=== PATIENT | female | born 1995 | race Caucasian/White ===

== ENCOUNTER 2019-04-17 17:14 | Emergency (ER) | payer OTHER, SELFPAY ==
[2019-04-17 17:22] VITALS: BP 146/75; PULSE 102; RESP 16; TEMP 36.9; O2SAT 100; BMI 23.6
[2019-04-17 17:36] LABS: Add Manual Diff / Slide Review NO; Basophils Absolute Auto 0 /uL (0-100); Basophils Percent Auto 0.5 % (0-2); Eosinophils Absolute Auto 100 /uL (0-450); Hematocrit 39.6 % (36-46); Lymphocytes Absolute Auto 2000 /uL (1100-4500); Lymphocytes Percent Auto 20.4 % (25-40); Mean Corpuscular HGB Conc 32.8 % (30-36); Mean Corpuscular Hemoglobin 27.1 PG (26-34); Mean Corpuscular Volume 82.6 fL (80-100); Monocytes Absolute Auto 800 /uL (0-900); Monocytes Percent Auto 8.5 % (3-14); Neutrophils Absolute Auto 6800 /uL (1500-7000); Neutrophils Percent Auto 69.6 % (50-75); Platelet Count 271 X10^3/uL (150-400); Red Cell Distribution Width 13.6 % (11.6-14.8); White Blood Cell Count 9.7 X10^3/uL (4.5-11.0)
--- NOTE | 2019-04-17 17:39 | PC.NURSE ---
Patient reports she had about 1 tbsp of dark red vaginal blood this morning at 11Am. About 1 more tbs an hour or two later. She steas has had no bleeding for the last 2 hours however is having lower abdominal cramping.
--- NOTE | 2019-04-17 17:42 | DI.US.S_ITS ---
PROCEDURE: US OB <= 14 WEEKS FETUS INDICATIONS: 7 WEEKS , BLEEDING OUTSIDE/PRIOR DATING DATA: Last menstrual period (LMP): 02/28/19. LMP-based estimated date of delivery (SHARON): 12/05/19. First dating scan (date and location): Current study, 04/17/19. Estimated date of delivery (SHARON) from first dating scan: Not applicable. TECHNIQUE: Real-time scanning was performed of the fetus and maternal pelvic organs, with image documentation. Endovaginal scanning was also performed to better visualize the fetus and maternal ovaries. COMPARISON: None. FINDINGS: Embryo: None seen. Within an ovoid endometrial fluid collection, there is a thin membrane and no evidence of pole. There is no significant decidual response. Mean gestational sac diameter is 7.7 mm which corresponds to a 5 week 4 day plus or -12 a gestation. Maternal organs: There is a small amount of simple fluid in the endocervix. A collection of microcysts is present the endocervix. An ovoid endometrial fluid collection is present, as are numerous small cysts peripherally located within the endometrium. The ovoid fluid collection within the uterine mid body rather than close to the fundus. Ovaries are seen and appear normal with detectable blood flow. Trace amount of fluid in the cul-de-sac. IMPRESSION: 1. Abnormal position and appearance of an ovoid intrauterine fluid collection. Findings are suggestive of nonviable . 2. Close clinical followup with serial beta hCG levels is recommended. 3. A cystic appearance to the endometrium raises the possibility of adenomyosis. Consider followup pelvic ultrasound in a non- state. Dictated by: Dorcas Miller M.D. on 04/17/2019 at 19:50 Approved by: Dorcas Miller M.D. on 04/17/2019 at 19:57
[2019-04-17 17:58] LABS: Alanine Aminotransferase 17 IU/L (9-52); Albumin Globulin Ratio 1.6 (1.0-2.8); Alkaline Phosphatase 55 U/L (38-126); Aspartate Aminotransferase 24 IU/L (14-36); Bilirubin Total 0.5 mg/dL (0.2-1.3); Blood Urea Nitrogen 15 mg/dL (7-17); Calcium 10.1 mg/dL (8.4-10.2); Carbon Dioxide 27 mmol/L (22-32); Chloride 101 mmol/L (98-107); Estimated Glomerular Filt Rate > 60.0 mL/min (>60); Globulin 3.1 g/dL (1.7-4.1); Glucose 91 mg/dL (70-100); HEMOLYSIS < 15 (0-50); Potassium 3.3 mmol/L (3.4-5.1); Sodium 138 mmol/L (137-145); Total Protein 8.1 g/dL (6.3-8.2)
[2019-04-17 18:15] LABS: HCG Quantitative /Beta subunit 574.67 mIU/mL
[2019-04-17 18:30] VITALS: BP 110/61; PULSE 99; RESP 18; O2SAT 100
--- NOTE | 2019-04-17 19:55 | ED_ITS ---
HPI - Female Genitourinary <TAMEKA Marie - Last Filed: 04/17/19 20:46> General Chief complaint: OB/Uterine Contractions Stated complaint: 7 WKS , BLEEDING, CRAMPING Time Seen by Provider: 04/17/19 17:25 Source: patient Mode of arrival: Ambulatory Limitations: no limitations History of Present Illness HPI Narrative: The patient is a 23-year-old female nonsmoker presents with her for chief complaint of vaginal bleeding . She states she is approximately 7 weeks , has her 1st OB appointment next week. She states that she started spotting this morning, states is about a tbsp of blood. Does not feel of a pad. Since then she has noticed some blood on the toilet paper when she urinates. She states it is not 2 hours ago. She denies any dysuria urgency or frequency. She complains of some suprapubic cramping. She denies any fevers nausea vomiting or diarrhea. Related Data Home Medications Medication Instructions Recorded Confirmed PNV cmb#95-ferrous fumarate-FA 1 tab PO DAILY 04/17/19 [] Allergies Allergy/AdvReac Type Severity Reaction Status Date / Time No Known Drug Allergies Allergy Verified 04/17/19 17:22 Review of Systems <TAMEKA Marie - Last Filed: 04/17/19 20:46> Review of Systems Narrative: GENERAL: Denies chills, fatigue, malaise, fever, sweats. HEENT: Denies sinus pain, ear pain, sore throat, difficulty swallowing, dizziness. RESPIRATORY: Denies dyspnea, cough, wheezing, hemoptysis, sputum. CARDIOVASCULAR: Denies chest pain, palpitations, orthopnea, edema, GASTROINTESTINAL: See HPI : See HPI MUSCULOSKELETAL: denies weakness, joint pain, or bony pain SKIN: Denies rash, skin lesions, or other NEUROLOGIC: Denies weakness, headache, numbness, change in speech, confusion, seizures, incoordination. PSYCHIATRIC: No concerning psychosocial issues. 12 point review of systems is negative except for those stated above PFSH <TAMEKA Marie - Last Filed: 04/17/19 20:46> Social History (Updated 04/17/19 @ 19:56 by TAMEKA Marie) marital status: Exam <CYNTHIA MarieBC - Last Filed: 04/17/19 20:46> Narrative Exam Narrative: GENERAL: This is a well-nourished, well-developed patient, no acute distress HEAD: Atraumatic. Normocephalic. No temporal or scalp tenderness. EYES: Pupils equal round and reactive. Extraocular motions intact. No scleral icterus. No injection or drainage. ENT: Nose without bleeding, purulent drainage or septal hematoma. Throat without erythema, tonsillar hypertrophy or exudate. Uvula midline. Airway patent. NECK: Trachea midline. No JVD or lymphadenopathy. Supple, nontender, no meningeal signs. CARDIOVASCULAR: Regular rate and rhythm without murmurs, gallops, or rubs. RESPIRATORY: Clear to auscultation. Breath sounds equal bilaterally. No wheezes, rales, or rhonchi. No cough. No increased respiratory effort. No accessory muscle use. GASTROINTESTINAL: Abdomen soft, non-tender, nondistended. No hepato- splenomegaly, or palpable masses. No guarding. Active bowel sounds all 4 quadrants. EXTREMITIES: No clubbing, cyanosis, or edema. No joint tenderness, effusion, or edema noted. BACK: Nontender without deformity or crepitance. No flank tenderness. NEURO: AOx3. SKIN: No rash or erythema. Initial Vital Signs Initial Vital Signs: Vital Signs Temperature 98.4 F 04/17/19 17:22 Pulse Rate 102 H 04/17/19 17:22 Respiratory Rate 16 04/17/19 17:22 Blood Pressure 146/75 H 04/17/19 17:22 Pulse Oximetry 100 04/17/19 17:22 <Luis Alberto Parks MD - Last Filed: 04/18/19 02:08> Initial Vital Signs Initial Vital Signs: Vital Signs Temperature 98.4 F 04/17/19 17:22 Pulse Rate 102 H 04/17/19 17:22 Respiratory Rate 16 04/17/19 17:22 Blood Pressure 146/75 H 04/17/19 17:22 Pulse Oximetry 100 04/17/19 17:22 Course <OSVALDO Marie-BC - Last Filed: 04/17/19 20:46> Orders Ordered: ED Orders 04/17/19 17:25 ABO RH Type Stat Complete Blood Count AUTO DIFF Stat Comprehensive Metabolic Panel Stat HCG Quantitative Stat 04/17/19 17:42 US OB <= 14 weeks fetus Stat Vital Signs Vital signs: Vital Signs - 8 hr 04/17/19 18:30 04/17/19 20:42 Pulse Rate 99 H 95 H Respiratory Rate 18 Blood Pressure 131/69 Blood Pressure [Left Arm] 110/61 Pulse Oximetry 100 100 <Luis Alberto Parks MD - Last Filed: 04/18/19 02:08> Orders Ordered: ED Orders 04/17/19 17:25 ABO RH Type Stat Complete Blood Count AUTO DIFF Stat Comprehensive Metabolic Panel Stat HCG Quantitative Stat 04/17/19 17:42 US OB <= 14 weeks fetus Stat Vital Signs Vital signs: Vital Signs - 8 hr 04/17/19 18:30 04/17/19 20:42 Pulse Rate 99 H 95 H Respiratory Rate 18 Blood Pressure 131/69 Blood Pressure [Left Arm] 110/61 Pulse Oximetry 100 100 MDM - Female Genitourinary <OSVALDO Marie- - Last Filed: 04/17/19 20:46> Lab Data Result diagrams: 04/17/19 17:25 04/17/19 17:25 Labs: Lab Results 04/17/19 04/17/19 04/17/19 Range/Units 17:25 17:25 17:25 WBC 9.7 (4.5-11.0) X10^3/uL RBC 4.80 (4.0-5.2) X10^6/uL Hgb 13.0 (12.0-16.0) g/dL Hct 39.6 (36-46) % MCV 82.6 (80-100) fL MCH 27.1 (26-34) PG MCHC 32.8 (30-36) % RDW 13.6 (11.6-14.8) % Plt Count 271 (150-400) X10^3/uL Neut % (Auto) 69.6 (50-75) % Lymph % (Auto) 20.4 L (25-40) % [place] % (Auto) 8.5 (3-14) % Eos % (Auto) 1.0 L (2-4) % Baso % (Auto) 0.5 (0-2) % Neut # (Auto) 6800 (7637-3457) /uL Lymph # (Auto) 2000 (0439-1198) /uL [place] # (Auto) 800 (0-900) /uL Eos # (Auto) 100 (0-450) /uL Baso # (Auto) 0 (0-100) /uL Sodium 138 (137-145) mmol/L Potassium 3.3 L (3.4-5.1) mmol/L Chloride 101 (98-107) mmol/L Carbon Dioxide 27 (22-32) mmol/L BUN 15 (7-17) mg/dL Creatinine 0.60 (0.52-1.04) mg/dL Estimated GFR > 60.0 (>60) mL/min BUN/Creatinine Ratio 25.0 H (6-22) Glucose 91 (70-100) mg/dL Calcium 10.1 (8.4-10.2) mg/dL Total Bilirubin 0.5 (0.2-1.3) mg/dL AST 24 (14-36) IU/L ALT 17 (9-52) IU/L Alkaline Phosphatase 55 (38-126) U/L Total Protein 8.1 (6.3-8.2) g/dL Albumin 5.0 (3.5-5.0) g/dL Globulin 3.1 (1.7-4.1) g/dL Albumin/Globulin Ratio 1.6 (1.0-2.8) HCG, Quant 574.67 mIU/mL Blood Type O Positive Urine Dip Bedside Urine Glucose Negative Bedside Urine Bilirubin - Negative Bedside Urine Ketone +/- 5 Urine Specific Thurmond 1.025 Bedside Urine Occult Blood + Bedside Urine pH 6.0 Bedside Urine Protein + 30 Bedside Urine Urobilinogen - Negative Bedside Urine Nitrite - Negative Bedside Urine Leukocytes - Negative Esterase Imaging Data ultrasound: Radiologist's impression: [place] [address] Ultrasound Report Signed Patient: VERO JONES MMR#: [id number] : 1995Acct:[id number] Age/Sex: te of Service: 04/17/19 Loc: ED Accession Number: [id number] Procedure: US OB <= 14 weeks fetus Ordering Provider: Stephenie Cardozo PROCEDURE: US OB <= 14 WEEKS FETUS INDICATIONS: 7 WEEKS , BLEEDING OUTSIDE/PRIOR DATING DATA: Last menstrual period (LMP): 02/28/19. LMP-based estimated date of delivery (SHARON): 12/05/19. First dating scan (date and location): Current study, 04/17/19. Estimated date of delivery (SHARON) from first dating scan: Not applicable. TECHNIQUE: Real-time scanning was performed of the fetus and maternal pelvic organs, with image documentation. Endovaginal scanning was also performed to better visualize the fetus and maternal ovaries. COMPARISON: None. FINDINGS: Embryo: None seen. Within an ovoid endometrial fluid collection, there is a thin membrane and no evidence of pole. There is no significant decidual response. Mean gestational sac diameter is 7.7 mm which corresponds to a 5 week 4 day plus or - 12 a gestation. Maternal organs: There is a small amount of simple fluid in the endocervix. A collection of microcysts is present the endocervix. An ovoid endometrial fluid collection is present, as are numerous small cysts peripherally located within the endometrium. The ovoid fluid collection within the uterine mid body rather than close to the fundus. Ovaries are seen and appear normal with detectable blood flow. Trace amount of fluid in the cul-de-sac. IMPRESSION: 1. Abnormal position and appearance of an ovoid intrauterine fluid collection. Findings are suggestive of nonviable . 2. Close clinical followup with serial beta hCG levels is recommended. 3. A cystic appearance to the endometrium raises the possibility of adenomyosis. Consider followup pelvic ultrasound in a non- state. Dictated by: Dorcas Miller M.D. on 04/17/2019 at 19:50 Approved by: Dorcas Miller M.D. on 04/17/2019 at 19:57 MDM Narrative Medical decision making narrative: The patient is a 23-year-old female presents with a chief complaint of vaginal bleeding at 7 weeks . She has no signs of urinary tract infection. She does have a slightly elevated beta HCG in the 500s, though this is lower than I would anticipate for her to station age. An ultrasound was obtained, which raise concern of a blighted ovum, or non viable . I discussed at length the necessity of following up with OBGYN for serial HCGs. Discussed coming back to the ER for any acute concerns such as inability keep down fluids, severe bleeding etc. I did give the patient several days off of work to help facilitate her care. Patient was discharged . Patient states understanding of follow-up care, return precautions and has no questions or concerns upon discharge. <Luis Alberto Parks MD - Last Filed: 04/18/19 02:08> Lab Data Labs: Lab Results 04/17/19 04/17/19 04/17/19 Range/Units 17:25 17:25 17:25 WBC 9.7 (4.5-11.0) X10^3/uL RBC 4.80 (4.0-5.2) X10^6/uL Hgb 13.0 (12.0-16.0) g/dL Hct 39.6 (36-46) % MCV 82.6 (80-100) fL MCH 27.1 (26-34) PG MCHC 32.8 (30-36) % RDW 13.6 (11.6-14.8) % Plt Count 271 (150-400) X10^3/uL Neut % (Auto) 69.6 (50-75) % Lymph % (Auto) 20.4 L (25-40) % [place] % (Auto) 8.5 (3-14) % Eos % (Auto) 1.0 L (2-4) % Baso % (Auto) 0.5 (0-2) % Neut # (Auto) 6800 (0910-9782) /uL Lymph # (Auto) 2000 (5944-1457) /uL Marinette # (Auto) 800 (0-900) /uL Eos # (Auto) 100 (0-450) /uL Baso # (Auto) 0 (0-100) /uL Sodium 138 (137-145) mmol/L Potassium 3.3 L (3.4-5.1) mmol/L Chloride 101 (98-107) mmol/L Carbon Dioxide 27 (22-32) mmol/L BUN 15 (7-17) mg/dL Creatinine 0.60 (0.52-1.04) mg/dL Estimated GFR > 60.0 (>60) mL/min BUN/Creatinine Ratio 25.0 H (6-22) Glucose 91 (70-100) mg/dL Calcium 10.1 (8.4-10.2) mg/dL Total Bilirubin 0.5 (0.2-1.3) mg/dL AST 24 (14-36) IU/L ALT 17 (9-52) IU/L Alkaline Phosphatase 55 (38-126) U/L Total Protein 8.1 (6.3-8.2) g/dL Albumin 5.0 (3.5-5.0) g/dL Globulin 3.1 (1.7-4.1) g/dL Albumin/Globulin Ratio 1.6 (1.0-2.8) HCG, Quant 574.67 mIU/mL Blood Type O Positive Urine Dip Bedside Urine Glucose Negative Bedside Urine Bilirubin - Negative Bedside Urine Ketone +/- 5 Urine Specific Thurmond 1.025 Bedside Urine Occult Blood + Bedside Urine pH 6.0 Bedside Urine Protein + 30 Bedside Urine Urobilinogen - Negative Bedside Urine Nitrite - Negative Bedside Urine Leukocytes - Negative Esterase Discharge Plan Departure Patient Disposition: Home Clinical Impression: Miscarriage, threatened, early Discharge Date/Time: 04/17/19 20:43 Instructions: Dealing With Miscarriage, DI for Miscarriage, DI for Threatened Activity Restrictions/Additional Instructions: Please follow-up with a your OBGYN as soon as possible. As I discussed, your hormone is elevated but your ultrasound shows concern for a blighted ovum or lost . Monitoring your lab work is very important at this point. I have given you a few days off of work to help coordinate your care rest and push fluids. Please come back to the emergency department for any acute concerns such as severe bleeding, passing out etc Prescriptions: No Action PNV cmb#95-ferrous fumarate-FA [] 28 mg iron- 800 mcg tablet 1 tab PO DAILY RF: 0 Referrals: [facility] [Outside] Stand Alone Forms: School Release Note, Work Release Note
[2019-04-17 20:42] VITALS: BP 131/69; PULSE 95; O2SAT 100
== END 2019-04-17 20:43 | disposition home or self-care (01) ==
PROVIDERS: Emergency Provider Nurse Practitioner Family
DX: O20.0 Threatened abortion (principal); Z3A.01 Less than 8 weeks gestation of pregnancy
CPT/HCPCS: 36415; 76801; 80053; 81003; 84702; 85025; 86900; 86901; 99282; 99284

== ENCOUNTER → 2019-11-05 14:56 | Outpatient (CLI) | payer OTHER, SELFPAY ==
--- NOTE | 2019-11-05 14:58 | DI.US.S_ITS ---
PROCEDURE: US RENAL COMPLETE INDICATIONS: RIGHT FLANK PAIN, ? KIDNEY STONE TECHNIQUE: Real-time scanning was performed of the kidneys and bladder, with image documentation. COMPARISON: [facility], , US OB >= 14 WEEKS FETUS, 11/05/2019, 15:34. [facility], , US OB <= 14 WEEKS FETUS, 04/17/2019, 18:42. FINDINGS: Kidneys: Kidneys are normal in size. Right kidney measures 10.7 cm long; left kidney measures 11.3 cm long. Right renal cortical thickness is 1.4 cm; left renal cortical thickness is 1.5 cm. Renal cortical echotexture is normal. Mild bilateral hydronephrosis. No nephrolithiasis. No suspicious solid mass lesions. Bladder: Pre-void bladder volume is 270 mL. Post-void residual is 51 mL. Pre-void images demonstrate no intraluminal masses or stones. On pre-void images, both ureteral jets are noted with color Doppler interrogation. (Of note, ureteral jets may not be detectable in up to 25% of cases due to insufficient differences in specific gravity between ureteral and bladder urine). Miscellaneous: No free pelvic fluid. There is a single IUP with heart rate 136 bpm. IMPRESSION: 1. Mild bilateral hydronephrosis. 2. Single IUP with heart rate 136 bpm. Dictated by: Lynn French M.D. on 11/05/2019 at 16:55 Approved by: Lynn French M.D. on 11/05/2019 at 17:01
--- NOTE | 2019-11-05 14:58 | DI.US.S_ITS ---
PROCEDURE: US OB >= 14 WEEKS FETUS INDICATIONS: 20 WEEK ANATOMY OUTSIDE/PRIOR DATING DATA: Last menstrual period (LMP): 06/17/19. LMP-based estimated date of delivery (SHARON): 03/23/20. First dating scan (date and location): 11/05/19, [facility]. Estimated date of delivery (SHARON) from first dating scan: 03/22/20. TECHNIQUE: Real-time scanning was performed of the fetus, with image documentation and biometric measurements. COMPARISON: None from this FINDINGS: General: A single live intrauterine gestation is present. Presentation: Variable. Placenta: Placental position is anterior, without previa. Amniotic fluid index: 16.8 cm, normal range is 5-24 cm. heart rate: 143 beats per minute. Maternal cervical canal: 3.3 cm long. Normal lower limit is 2.5 cm. biometrics: Biparietal diameter: 4.8 cm equals 20 weeks 3 days Head circumference: 18.1 cm equals 20 weeks 3 days Abdominal circumference: 16.5 cm equals 21 weeks 2 days Femur length: 3.1 cm equals 19 weeks 5 days Estimated gestational age from initial scan: 20 weeks 2 days Composite gestational age from present scan: 20 weeks 2 days Estimated weight and percentile: 360 g, 68th percentile Measurement variability for biometric dating: +/- 7 days from 14 weeks to 15 weeks 6 days gestation, +/- 10 days from 16 weeks to 21 weeks 6 days gestation, +/- 2 weeks from 22 weeks to 27 weeks 6 days gestation, +/- 3 weeks for 28 weeks gestation or later. weight reference: 4500 g or EFW >90/95% is considered macrosomia or large for gestational age. EFW <10% is small for gestational age. EFW 5% or less is considered intra-uterine growth restriction. Anatomic survey: Neuro: Ventricles are non-dilated at less than 10 mm. Cisterna magna is normal at 3-11 mm. Cerebellum is normal in size and morphology. Nuchal skin fold: Normal at less than 6 mm between 14-21 weeks gestational age. Face: Nose and lips, facial profile are normal. Spine: No evidence for spina bifida. Heart: 4-chambered heart is present, with normal ventricular outflow tracts. Diaphragm: Diaphragm is intact. Stomach: Left-sided stomach is present. Kidneys: No hydronephrosis. Normal is less than 5 mm in 2nd trimester, less than 7 mm in 3rd trimester. Cord: 3-vessel cord has orthotopic insertion. Bladder: Normal in size. Extremities: All 4 extremities identified. IMPRESSION: A single live intrauterine is seen. No significant discrepancy is found between the estimated gestational age based on these images and the estimated gestational age based upon the given date of the last menstrual period. No anatomic abnormalities are identified. Dictated by: Subhash Ballesteros M.D. on 11/05/2019 at 16:17 Approved by: Subhash Ballesteros M.D. on 11/05/2019 at 16:18
[2019-11-11 08:22] LABS: CF Result Comment: (.)
== END ==
PROVIDERS: Referring Provider Family Medicine; Visit Provider Family Medicine
DX: Z36.89 Encounter for other specified antenatal screening (principal); O99.89 Other specified diseases and conditions complicating pregnancy, childbirth and the puerperium; N13.30 Unspecified hydronephrosis; R10.9 Unspecified abdominal pain; Z3A.20 20 weeks gestation of pregnancy; Z83.49 Family history of other endocrine, nutritional and metabolic diseases
CPT/HCPCS: 36415; 76770; 76811; 81223

== ENCOUNTER → 2019-12-31 11:21 | Outpatient (CLI) | payer OTHER, SELFPAY ==
[2019-12-31 13:43] LABS: Add Manual Diff / Slide Review NO; Basophils Absolute Auto 0 /uL (0-100); Basophils Percent Auto 0.3 % (0-2); Eosinophils Absolute Auto 100 /uL (0-450); Eosinophils Percent Auto 0.7 % (2-4); Hematocrit 31.1 % (36-46); Hemoglobin 10.7 g/dL (12.0-16.0); Lymphocytes Absolute Auto 1200 /uL (1100-4500); Lymphocytes Percent Auto 11.1 % (25-40); Mean Corpuscular HGB Conc 34.3 % (30-36); Mean Corpuscular Hemoglobin 29.3 PG (26-34); Mean Corpuscular Volume 85.4 fL (80-100); Monocytes Absolute Auto 800 /uL (0-900); Neutrophils Absolute Auto 8800 /uL (1500-7000); Neutrophils Percent Auto 80.9 % (50-75); Platelet Count 247 X10^3/uL (150-400); Red Blood Cell Count 3.64 X10^6/uL (4.0-5.2); Red Cell Distribution Width 13.9 % (11.6-14.8); White Blood Cell Count 10.9 X10^3/uL (4.5-11.0)
[2019-12-31 14:25] LABS: GTT (PREG) 1 Hour PP 50gm Dose 113 mg/dL (76-139)
== END ==
PROVIDERS: Referring Provider Family Medicine; Visit Provider Family Medicine
DX: Z34.92 Encounter for supervision of normal pregnancy, unspecified, second trimester (principal)
CPT/HCPCS: 36415; 82950; 85025

== ENCOUNTER 2020-01-24 18:32 | Outpatient (CLI) | payer OTHER, SELFPAY ==
--- NOTE | 2020-01-27 09:08 | P.TNLD_ITS ---
Visit Information Visit Information Date of evaluation: 01/24/20 Primary OB Provider: Kylie Castaneda On-call OB Provider: Zoe Soto Reason for Evaluation: Yes other Comments/Additional reasons for admission: Dizziness Vital Signs Vital Signs: Blood pressure 120/66, pulse of 83, temperature 97.4?, O2 sat 98% [facility] Medical History (Updated 01/27/20 @ 09:11 by Zoe Soto MD) Acid reflux (Acute) Anxiety (Acute) Jade infection of genital region (Acute) Migraine (Acute) UTI (urinary tract infection) (Acute) Surgical History (Updated 10/30/19 @ 14:59 by Katerina Francois RN) [place] teeth removed (Acute ~2019) Family History (Updated 10/30/19 @ 15:15 by Katerina Francois, BOUCHRA) Mother Scoliosis Father No problems noted. Grandmother No problems noted. Grandfather Cystic fibrosis gene carrier Grandmother No problems noted. Grandfather No problems noted. Family/Other Diabetes mellitus Social History (Updated 04/17/19 @ 19:56 by Stephenie Cardozo [facility]) marital status: household members: spouse pets and animals: Yes (X 2 cats and X 1 dog : and aware) education level: college (some college classes) occupational status: employed current occupational exposures/hazards: No Previous occupational history: [employer] special laurie needs: No Smoking Status: Never smoker second hand exposure: No alcohol intake: former (pre- : occasional) substance use type: does not use Review of Systems Review of Systems Narrative: Patient states that she was at work and felt extremely lightheaded and dizzy. She was told by her primary OB provider the next time this happened that she should be seen. Patient left work and came to Labor and delivery. However by the time she was evaluated her symptoms had resolved. Evaluation Evaluation Baseline heart rate: 140 Variability: Moderate (11-25) monitor accelerations: Present monitor decelerations: Absent Contraction Frequency (minutes): 0 Category of Tracing: I Diagnosis, Plan/Disposition Final Diagnosis (1) 31 weeks gestation of : Status: Acute (2) Dizziness of unknown etiology: Status: Acute Plan/Disposition Plan: Patient with dizziness of unknown etiology. Normal blood pressure and pulse as well as oxygenation. However most of her symptoms had resolved by the time she presented to the OB unit. She will keep her follow-up appointment with her primary OB provider OB Disposition: home
== END 2020-01-24 19:31 | disposition home or self-care (01) ==
LOC: OB 01-27 10:47
PROVIDERS: Referring Provider Specialist; Visit Provider Specialist
DX: O26.893 Other specified pregnancy related conditions, third trimester (principal); R42 Dizziness and giddiness; Z3A.31 31 weeks gestation of pregnancy
CPT/HCPCS: 59025; G0378; G0379

== ENCOUNTER → 2020-02-25 11:23 | Outpatient (CLI) | payer OTHER, SELFPAY ==
--- NOTE | 2020-02-26 08:01 | PM.OBTRLD ---
Visit Information Visit Information Date of evaluation: 02/25/20 Primary OB Provider: Kylie Castaneda On-call OB Provider: Nadine Banks Reason for Evaluation: Yes rupture of membranes Comments/Additional reasons for admission: Patient is a 24-year-old 1 para 0 at 36-,1/7 weeks gestation who presented to rule out ruptured membranes [facility] Medical History (Updated 01/29/20 @ 15:57 by Kylie Castaneda MD) Acid reflux (Acute) Anxiety (Acute) Jade infection of genital region (Acute) Migraine (Acute) UTI (urinary tract infection) (Acute) Surgical History (Updated 10/30/19 @ 14:59 by Katerina Francois, RN) [place] teeth removed (Acute ~2019) Family History (Updated 10/30/19 @ 15:15 by Katerina Francois, RN) Mother Scoliosis Father No problems noted. Grandmother No problems noted. Grandfather Cystic fibrosis gene carrier Grandmother No problems noted. Grandfather No problems noted. Family/Other Diabetes mellitus Social History (Updated 04/17/19 @ 19:56 by Stephenie Cardozo [facility]) marital status: household members: spouse pets and animals: Yes (X 2 cats and X 1 dog : and aware) education level: college (some college classes) occupational status: employed current occupational exposures/hazards: No Previous occupational history: [employer] special laurie needs: No Smoking Status: Never smoker second hand exposure: No alcohol intake: former (pre- : occasional) substance use type: does not use Evaluation Evaluation Baseline heart rate: 145 Variability: Moderate (11-25) monitor accelerations: Present monitor decelerations: Absent Contraction Frequency (minutes): 0 Uterine Contraction Intensity: Mild Category of Tracing: I Cervical dilation (cm): 0 Cervical effacement (%): 50 Non-invasive Membranes Rupture Test: negative Diagnosis, Plan/Disposition Plan/Disposition Plan: Assessment: 24-year-old 1 para 0 at 36-,1/7 weeks gestation without rupture of membranes Plan: Follow-up as scheduled with Dr. Castaneda Signs symptoms of labor/rupture of membranes reviewed OB Disposition: home
[2020-02-26 12:13] LABS: Strep Grp B PCR NEG for Grp B Strep
== END ==
LOC: LAB 11:54 → LABOR 19:05 → LAB 02-27 11:10
PROVIDERS: PCP Family Medicine; Referring Provider Family Medicine; Visit Provider Family Medicine
DX: Z34.03 Encounter for supervision of normal first pregnancy, third trimester (principal)
CPT/HCPCS: 59025; 84112; 87653; G0378

== ENCOUNTER 2020-03-21 02:33 | Inpatient (IN) | payer OTHER, SELFPAY ==
[2020-03-21 03:41] VITALS: BP 129/72
[2020-03-21] MEDS: LACTATED RINGERS 1,000 ML 100 ML IV ×2 (04:45→06:35)
[2020-03-21 04:48] LABS: Add Manual Diff / Slide Review NO; Basophils Absolute Auto 100 /uL (0-100); Basophils Percent Auto 0.9 % (0-2); Eosinophils Absolute Auto 100 /uL (0-450); Hematocrit 35.5 % (36-46); Hemoglobin 11.7 g/dL (12.0-16.0); Lymphocytes Absolute Auto 2000 /uL (1100-4500); Lymphocytes Percent Auto 13.2 % (25-40); Mean Corpuscular HGB Conc 32.9 % (30-36); Mean Corpuscular Hemoglobin 28.2 PG (26-34); Mean Corpuscular Volume 85.8 fL (80-100); Monocytes Absolute Auto 1200 /uL (0-900); Monocytes Percent Auto 8.1 % (3-14); Neutrophils Absolute Auto 11500 /uL (1500-7000); Neutrophils Percent Auto 76.8 % (50-75); Platelet Count 220 X10^3/uL (150-400); Red Blood Cell Count 4.14 X10^6/uL (4.0-5.2); Red Cell Distribution Width 13.1 % (11.6-14.8)
[2020-03-21 05:01] LABS: COVID19 -Nasal RAPID Negative (Negative)
--- NOTE | 2020-03-21 06:53 | P.HPOB_ITS ---
OB HPI Date/Time Date of admission: 03/21/20 Date Patient Seen: 03/21/20 Time Patient Seen: 06:00 History of Present Condition Chief complaint: evaluation of labor : 1 Para: 0 Estimated Date of Delivery: 03/23/20 Estimated Gestational Age (weeks): 39w5d Narrative: Kaykay Schafer is a 24 year old at 39w5d who presented with regular painful contractions. Preadmission Labs Blood type: O (+) positive -: Antibody screen: negative, Cystic fibrosis screen: positive (partner negative screen), GBS status: negative, HBsAG: negative, HIV: negative and RPR/VDLR: negative -: Chlamydia screen: not detected and Gonorrhea screen: not detected -: Rubella: immune and Varicella: immune HCT: 35.5 PAP: Normal Integrated screen: Negative Urine: Negative 1 hr GTT: 113 Evaluation Evaluation Baseline heart rate: 120 Variability: Moderate (11-25) monitor accelerations: Present monitor decelerations: Absent Contraction Frequency (minutes): 5 Uterine Contraction Intensity: Strong/Firm Category of Tracing: Reactive Cervical dilation (cm): 4 Cervical effacement (%): 90 station: +1 Laboratory results: Laboratory Tests 03/21/20 03/21/20 03/21/20 04:05 04:35 04:35 WBC 15.0 H RBC 4.14 Hgb 11.7 L Hct 35.5 L MCV 85.8 MCH 28.2 MCHC 32.9 RDW 13.1 Plt Count 220 Neut % (Auto) 76.8 H Lymph % (Auto) 13.2 L [place] % (Auto) 8.1 Eos % (Auto) 1.0 L Baso % (Auto) 0.9 Neut # (Auto) 97261 H Lymph # (Auto) 2000 [place] # (Auto) 1200 H Eos # (Auto) 100 Baso # (Auto) 100 COVID-19 PCR Negative Blood Type O Positive Antibody Screen Negative PFSH Medical History (Updated 01/29/20 @ 15:57 by Kylie Castaneda MD) Acid reflux (Acute) Anxiety (Acute) Jade infection of genital region (Acute) Migraine (Acute) UTI (urinary tract infection) (Acute) Surgical History (Updated 10/30/19 @ 14:59 by Katerina Francois RN) [place] teeth removed (Acute ~2019) Family History (Updated 10/30/19 @ 15:15 by Katerina Francois RN) Mother Scoliosis Father No problems noted. Grandmother No problems noted. Grandfather Cystic fibrosis gene carrier Grandmother No problems noted. Grandfather No problems noted. Family/Other Diabetes mellitus Social History (Updated 04/17/19 @ 19:56 by OSVALDO Marie-) marital status: household members: spouse pets and animals: Yes (X 2 cats and X 1 dog : and aware) education level: college (some college classes) occupational status: employed current occupational exposures/hazards: No Previous occupational history: [employer] [place] special laurie needs: No Smoking Status: Never smoker second hand exposure: No alcohol intake: former (pre- : occasional) substance use type: does not use Meds Home Medications and Allergies Home Medications Medication Instructions Recorded Confirmed Type PNV cmb#95-ferrous fumarate-FA 1 tab PO DAILY 04/17/19 03/21/20 History [] ferrous fumarate-docusate 325 mg PO DAILY 01/29/20 03/21/20 History Allergies Allergy/AdvReac Type Severity Reaction Status Date / Time No Known Drug Allergies Allergy Verified 02/25/20 19:25 Exam Vital Signs (past 8 hours): - 03/21/20 03:41 Blood Pressure 129/72 Narrative Exam Narrative: Gen: NAD, laying comfortably in bed, appears well CV: RRR, no murmurs Resp: clear to auscultation bilaterally GI: soft, nontender, nondistended, gravid Ext: trace edema Estimated Weight (lbs): 7 Objective Labs Result Diagrams: 03/21/20 04:35 Labs: Laboratory Results - last 24 hr 03/21/20 03/21/20 03/21/20 04:05 04:35 04:35 WBC 15.0 H RBC 4.14 Hgb 11.7 L Hct 35.5 L MCV 85.8 MCH 28.2 MCHC 32.9 RDW 13.1 Plt Count 220 Neut % (Auto) 76.8 H Lymph % (Auto) 13.2 L [place] % (Auto) 8.1 Eos % (Auto) 1.0 L Baso % (Auto) 0.9 Neut # (Auto) 27313 H Lymph # (Auto) 2000 [place] # (Auto) 1200 H Eos # (Auto) 100 Baso # (Auto) 100 COVID-19 PCR Negative Blood Type O Positive Antibody Screen Negative Assessment and Plan Assessment and Plan Assessment and Plan narrative: 24yo at 39w5d who presented in active labor. Uncomplicated . Pt did test positive for CF, but FOB is negative. Rh positive, GBS negative. - Expectant management, anticipate - FHT reassuring - Epidural in place for pain control - GBS negative, no prophylaxis indicated
--- NOTE | 2020-03-21 10:28 | PM.OBPNLAB ---
Date/Time Date Patient Seen: 03/21/20 Time Patient Seen: 10:28 Pain Control Pain control: epidural Pelvic Exam Dilation (cm): 10 Effacement (%): 100 station: +1 Amniotic membrane status: Ruptured Comments: AROM performed after informed consent, with meconium-stained fluid Contractions Contraction intensity: Strong/Firm Status status: Category l Heart Rate Baseline: 120 Monitor Accelerations: Present Monitor Decelerations: Absent Monitor Variability: Moderate Assessment and Plan Comments: 24yo at 39w5d who presented in active labor. Uncomplicated . Pt did test positive for CF, but FOB is negative. Rh positive, GBS negative. AROM with meconium-stained fluid. - Expectant management, anticipate - FHT reassuring - Epidural in place for pain control - GBS negative, no prophylaxis indicated
--- NOTE | 2020-03-21 12:08 | PM.OBPRVD ---
Labor & Delivery Delivery date: 03/21/20 Intrapartal events: None Episiotomy description: None Complications: None Narrative: PROCEDURE: at 39w5d presented in active labor and was admitted to Labor and Delivery. The patient progressed through the 1st stage over 6 hours. Pain was controlled with an epidural. AROM was performed with production of meconium-stained fluid. The patient progressed through the 2nd stage over 2.5 hours and delivered a viable male infant with APGARs 8/9 at 10:59 via without complications. The baby was delivered to maternal abdomen, and cord clamped and cut after it stopped pulsating. The perineum and vagina were inspected with 2nd degree laceration repaired with 3-O Chromic. PREPROCEDURE DIAGNOSIS: Intrauterine at 39w5d CF positive (FOB negative) GBS negative RH positive POSTPROCEDURE DIAGNOSIS: Intrauterine at 39w5d, delivered Same as preprocedure PROCEDURE: Spontaneous vaginal delivery INDUCTION: No LABOR AUGMENTATION: None ROM APPEARANCE: Meconium BABY A DELIVERY TIME: 10:59am BABY A OUTCOME: Viable BABY A SEX: Male BABY A WEIGHT: 8lb5.1g, 3789g BABY A PRESENTATION: Vertex BABY A POSITION: OA BABY A NUCHAL CORD: None BABY A # CORD VESSELS: 3 PLACENTA DELIVERY TIME: 11:10 PLACENTAL DELIVERY TYPE: Spontaneous PLACENTA APPEARANCE: Intact EBL: 250mL Baby 1: gender: Male score (1 min): 8 score (5 min): 9 Plan for aftercare: Normal care
[2020-03-21] MEDS: DERMOPLAST SPRAY 20% 60 ML 1 SPRAY TOP (15:59)
[2020-03-21] MEDS: LANOLIN OINT 7 GM 1 APPLIC TOP (15:59)
[2020-03-21] MEDS: IBUPROFEN 600 MG TABLET PO (15:59)
--- NOTE | 2020-03-22 09:03 | PM.OBDS.1 ---
Discharge Providers Provider Date of admission: 03/21/20 02:33 Discharge Date: 03/22/20 Primary care physician: Kylie Castaneda MD Consults: 03/21/20 03:44 Consult to Anesthesiology Urgent Comment: Consulting Provider: Tommie Quiles Reason for consultation: Labor pain managemant 03/22/20 12:09 Consult to Heat And Vent Aircraft Mechanic Routine Comment: Discharge provider: Kylie Castaneda MD Summary Hospital Course Date Patient Seen: 03/22/20 Time Patient Seen: 08:30 Procedures: Spontaneous vaginal delivery Hospital Course: The pt presented in active labor She received an epidural for pain control. She progressed to complete and had a spontaneous vaginal delivery of a viable baby boy at 10:59 on 03/21/20. A second degree perineal laceration was then repaired. , there were no complications. At the time of discharge she was voiding, ambulating, and passing flatus without difficulty. She had a BM prior to d/c. She was with good latch, working on latch on the left side. Her pain was adequately controlled. She will f/u in clinic for her 6 week check. She desires Nexplanon for control. Peripartum Data Infant Delivery Method: Natural Vaginal Laceration Description: Perineal - 2nd Degree Episiotomy description: None Procedures: Spontaneous vaginal delivery complications: none 1: Gender: Male Disposition of : home Discharge Diagnosis (1) Vaginal delivery: Status: Acute Status at Discharge Cognitive/behavioral status at discharge: oriented Functional status at discharge: independent ambulation Overall status at discharge: patient is progressing back to baseline Time Spent with Patient Time attestation: Total time spent providing and/or coordinating discharge services: Objective Labs Result Diagrams: 03/21/20 04:35 Discharge Plan Discharge Plan Patient Disposition: Home Discharge orders & Medications Prescriptions: New acetaminophen 325 mg Tablet 650 mg PO Q6HR PRN (Reason: Pain, Mild (1-3)) Qty: 30 RF: 0 Dermoplast (with menthol) 20-0.5 % Aerosol 1 spray topical Q1HR PRN (Reason: perineal pain) Qty: 56 RF: 0 docusate sodium [DOK] 100 mg Capsule 100 mg PO DAILY Qty: 30 RF: 0 ibuprofen 600 mg Tablet 600 mg PO Q6HR PRN (Reason: Pain, Mild (1-3)) Qty: 30 RF: 0 Lxz-F-Yrlwzd Cream 1 applic topical PRN PRN (Reason: Tenderness) Qty: 24 RF: 0 Continued ferrous fumarate-docusate 325 mg PO DAILY RF: 0 PNV cmb#95-ferrous fumarate-FA [] 28 mg iron- 800 mcg tablet 1 tab PO DAILY RF: 0 Follow up/Referrals: Kylie Castaneda MD [Primary Care Provider] - Diet/Activity/Treatments Diet: Diet as Tolerated and Regular Skin/Wound/Dressing Care Report to your healthcare provider any signs of infection, such as:: chills, fever, increased pain and unusual drainage Visit Report/Discharge Packet Instructions: DI for Labor and Delivery, Vaginal Visit Report Forms: Patient Portal/API, Stroke Signs & Symptoms Discharge Data Primary Care Provider: Kylie Castaneda Attending Provider: Kylie Castaneda Admit Date/Time: 03/21/20 02:33
[2020-03-22] MEDS: DOCUSATE 100 MG CAPSULE PO (10:02)
[2020-03-22] MEDS: PRENATAL VIT,CALC/IRON/FOLIC 1 TABLET 1 TAB PO (10:02)
[2020-03-22] MEDS: LANOLIN OINT 7 GM 1 APPLIC TOP (10:03)
[2020-03-22 13:23] VITALS: BP 129/72; PULSE 77; RESP 16; TEMP 36.9
== END 2020-03-22 14:45 | disposition home or self-care (01) | DRG 807 ==
PROVIDERS: Admitting Provider Family Medicine; PCP Family Medicine; Referring Provider Family Medicine; Visit Provider Family Medicine
DX: O77.0 Labor and delivery complicated by meconium in amniotic fluid (principal); Z37.0 Single live birth; Z3A.39 39 weeks gestation of pregnancy; O70.1 Second degree perineal laceration during delivery; Z11.59 Encounter for screening for other viral diseases
CPT/HCPCS: 01967; 59050; 59410; 85025; 86850; 86900; 86901; 87635; G0378; G0379

== ENCOUNTER → 2020-04-01 13:18 | Outpatient (CLI) | payer OTHER, SELFPAY | PROVIDERS: PCP Family Medicine; Visit Provider Family Medicine | DX: O90.89 Other complications of the puerperium, not elsewhere classified (principal); R52 Pain, unspecified | CPT/HCPCS: 87070; 87077; 87205 ==

== ENCOUNTER → 2020-04-02 12:03 | Outpatient (CLI) | payer OTHER, SELFPAY ==
--- NOTE | 2020-04-02 12:06 | DI.US.S_ITS ---
PROCEDURE: US PELVIC COMPLETE INDICATIONS: acute post pelvic pain TECHNIQUE: Real-time scanning was performed of the pelvic organs, with image documentation. Additional endovaginal scanning was declined. COMPARISON: None. FINDINGS: Transabdominal scanning: Limited scanning through the kidneys shows no hydronephrosis. No pathologic free abdominal or pelvic fluid. Endovaginal scanning: Uterus: Uterus is normal in size at 11.5 x 5.8 x 10.5 cm. The endometrium measures 4-7 mm in combined thickness. Endometrial cavity unremarkable. Ovaries: Right ovary measures 3.5 x 2.0 x 2.1 cm . Left ovary measures 2.6 x 1.6 x 2.1 cm. Ovaries are unremarkable. IMPRESSION: Negative transabdominal examination as above. Dictated by: Juan Garza M.D. on 04/02/2020 at 13:18 Approved by: Juan Garza M.D. on 04/02/2020 at 14:06
== END ==
PROVIDERS: PCP Family Medicine; Referring Provider Family Medicine; Visit Provider Family Medicine
DX: O90.89 Other complications of the puerperium, not elsewhere classified (principal); R52 Pain, unspecified
CPT/HCPCS: 76830; 76856

== ENCOUNTER 2020-04-19 22:37 | Emergency (ER) | payer OTHER, SELFPAY ==
--- NOTE | 2020-04-19 22:39 | DI.RAD.S_ITS ---
PROCEDURE: XR CHEST 1V INDICATIONS: Chest pain TECHNIQUE: One view of the chest was acquired. COMPARISON: None. FINDINGS: Surgical changes and devices: None. Lungs and pleura: Lungs are clear. No pleural effusions or pneumothorax. Mediastinum: Mediastinal contours appear normal. Heart size is normal. Bones and chest wall: No suspicious bony lesions. Overlying soft tissues appear unremarkable. IMPRESSION: No acute pulmonary process. Dictated by: Viki King M.D. on 04/20/2020 at 10:16 Approved by: Viki Kign M.D. on 04/20/2020 at 10:16
[2020-04-19 22:41] VITALS: BP 132/73; PULSE 94; RESP 18; O2SAT 98
[2020-04-19 23:00] VITALS: BP 113/55; PULSE 71; RESP 18; O2SAT 98
--- NOTE | 2020-04-19 23:07 | ED_ITS ---
HPI - Chest Pain General Chief Complaint: Chest Pain Stated Complaint: chest pain Time Seen by Provider: 04/19/20 22:38 Source: patient Mode of arrival: Ambulatory Limitations: no limitations History of Present Illness HPI narrative: 24-year-old otherwise healthy female 1 month from a vaginal delivery here for evaluation of approximately 1 week of off and on epigastric/upper abdomen/retrosternal pain. She states that at the time my evaluation her symptoms have greatly improved from earlier today. Very difficult for her to describe the symptoms. She states that initially she thought it was related to eating however earlier today it happened after she was in the shower. Does not think that is worse with palpation or movement or breathing. Has never had anything like this in the past. No prior abdominal surgeries. She does have a history of reflux disease. She states this feels different from that. Related Data Home Medications Medication Instructions Recorded Confirmed PNV cmb#95-ferrous fumarate-FA 1 tab PO DAILY 04/17/19 03/21/20 [] ferrous fumarate-docusate 325 mg PO DAILY 01/29/20 03/21/20 Previous Rx's Medication Instructions Recorded acetaminophen 650 mg PO Q6HR PRN #30 tab 03/22/20 benzocaine-menthol [Dermoplast 1 spray TOPICAL Q1HR PRN #56 g 03/22/20 (with menthol)] docusate sodium [DOK] 100 mg PO DAILY #30 cap 03/22/20 ibuprofen 600 mg PO Q6HR PRN #30 tab 03/22/20 lanolin [[id number]-Y-Htwfwm] 1 applic TOPICAL PRN PRN #24 g 03/22/20 hydrocodone 5 mg-acetaminophen 325 1 tab PO Q8H PRN #20 tab 04/01/20 mg tablet ondansetron 4 mg disintegrating 4 mg PO Q8H PRN #20 tab 04/01/20 tablet amoxicillin 875 mg-potassium 1 tab PO BID #14 tab 04/02/20 clavulanate 125 mg tablet Allergies Allergy/AdvReac Type Severity Reaction Status Date / Time No Known Drug Allergies Allergy Verified 02/25/20 19:25 Review of Systems Constitutional Constitutional: Denies fever(s) and Denies headache(s) ENT Ears, Nose, Mouth, and Throat: Denies headache(s) Cardiovascular Cardiovascular: Reports chest pain and Denies dyspnea Respiratory Respiratory: Denies dyspnea Gastrointestinal Gastrointestinal: Reports abdominal pain, Denies change in bowel habits, Denies nausea and Denies vomiting Genitourinary Genitourinary: Denies dysuria Genitourinary: Denies dysuria Musculoskeletal Musculoskeletal: Denies arthralgias and Denies myalgias Integumentary/Breasts Skin/Breast: Denies lesions and Denies rash Neurologic Neurologic: Denies behavioral changes and Denies headache(s) Psychiatric Psychiatric: Denies behavioral changes Hematologic/Lymphatic Hematologic/Lymphatic: Denies easy bleeding and Denies easy bruising Allergic/Immunologic Allergic/Immunologic: Denies urticaria Patient History Medical History Acid reflux (Acute) Anxiety (Acute) Jade infection of genital region (Acute) Migraine (Acute) UTI (urinary tract infection) (Acute) Vaginal delivery (Acute) Surgical History (Updated 10/30/19 @ 14:59 by Katerina Francois RN) [place] teeth removed (Acute ~2019) Family History (Updated 10/30/19 @ 15:15 by Katerina Francois RN) Mother Scoliosis Father No problems noted. Grandmother No problems noted. Grandfather Cystic fibrosis gene carrier Grandmother No problems noted. Grandfather No problems noted. Family/Other Diabetes mellitus Social History marital status: household members: spouse pets and animals: Yes (X 2 cats and X 1 dog : and aware) education level: college (some college classes) occupational status: employed current occupational exposures/hazards: No Previous occupational history: [employer] special laurie needs: No Smoking Status: Never smoker second hand exposure: No alcohol intake: former (pre- : occasional) substance use type: does not use Smoking Status: Never smoker Exam Initial Vital Signs Initial Vital Signs: Vital Signs Pulse Rate 94 H 04/19/20 22:41 Respiratory Rate 18 04/19/20 22:41 Blood Pressure 132/73 04/19/20 22:41 Pulse Oximetry 98 04/19/20 22:41 Const General: cooperative and comfortable Limitations: mental status not altered HENMT Head: normal to inspection and normocephalic Resp Effort & Inspection: normal respiratory effort Auscultation: clear to auscultation bilaterally Cardio Rate: regular rate Rhythm: regular rhythm GI Inspection: non-distended Palpation: soft and No tender Skin Lesions: no lesions Rashes: no rashes Neuro General: patient alert, patient awake and patient oriented x3 Cognition: normal cognition Speech: speech normal Extrem General: normal to inspection and capillary refill normal Psych Appearance: grossly normal and well kempt Course Orders Ordered: ED Orders 04/19/20 22:39 XR chest 1V Stat EKG-12 Lead Stat 04/19/20 23:31 Complete Blood Count AUTO DIFF Stat Comprehensive Metabolic Panel Stat Lipase Stat Vital Signs Vital signs: Vital Signs - 8 hr 04/19/20 22:41 Pulse Rate 94 H Respiratory Rate 18 Blood Pressure 132/73 Pulse Oximetry 98 MDM - Chest Pain Lab Data Attestation: I reviewed the patient's lab results. Result diagrams: 04/19/20 23:31 04/19/20 23:31 Labs: Lab Results 04/19/20 04/19/20 Range/Units 23:31 23:31 WBC 10.5 (4.5-11.0) X10^3/uL RBC 3.98 L (4.0-5.2) X10^6/uL Hgb 11.4 L (12.0-16.0) g/dL Hct 34.1 L (36-46) % MCV 85.6 (80-100) fL MCH 28.6 (26-34) PG MCHC 33.4 (30-36) % RDW 12.7 (11.6-14.8) % Plt Count 218 (150-400) X10^3/uL Neut % (Auto) 77.3 H (50-75) % Lymph % (Auto) 12.6 L (25-40) % [place] % (Auto) 8.2 (3-14) % Eos % (Auto) 1.6 L (2-4) % Baso % (Auto) 0.3 (0-2) % Neut # (Auto) 8100 H (1807-2886) /uL Lymph # (Auto) 1300 (7319-3373) /uL [place] # (Auto) 900 (0-900) /uL Eos # (Auto) 200 (0-450) /uL Baso # (Auto) 0 (0-100) /uL Sodium 139 (137-145) mmol/L Potassium 3.5 (3.4-5.1) mmol/L Chloride 107 (98-107) mmol/L Carbon Dioxide 26 (22-32) mmol/L BUN 19 H (7-17) mg/dL Creatinine 0.57 (0.52-1.04) mg/dL Estimated GFR > 60.0 (>60) mL/min BUN/Creatinine Ratio 33.3 H (6-22) Glucose 101 H (70-100) mg/dL Calcium 8.7 (8.4-10.2) mg/dL Total Bilirubin 0.4 (0.2-1.3) mg/dL AST 75 H (14-36) IU/L ALT 23 (<35) IU/L Alkaline Phosphatase 94 (38-126) U/L Total Protein 6.1 L (6.3-8.2) g/dL Albumin 3.6 (3.5-5.0) g/dL Globulin 2.5 (1.7-4.1) g/dL Albumin/Globulin Ratio 1.4 (1.0-2.8) Lipase 166 (23-300) U/L Imaging Data Chest x-ray: Attestation: I personally reviewed and interpreted this imaging study as follows: My Impression: No pneumonia, no pneumothorax, no free air under the diaphragm. ECG Data Attestation: I personally reviewed and interpreted this ECG as follows: Prior ECG tracings: not available for review Interpretation: Sinus rhythm Ventricular rate is 76 Sinus arrhythmia Normal QRS Normal QTC No ST T wave changes MDM Narrative Medical decision making narrative: EKG negative, chest x-ray negative, labs not consistent with acute cholecystitis. Has a benign exam. Actually feels better now than when she did earlier today. Unsure the exact etiology however I did discuss with her potential for reflux disease versus gallbladder issues. I feel we can hold on further workup for now. Patient was given return precautions. She was given instructions on what to look for at home. She is going to follow up with her primary provider. She expressed understanding and agreement. Discharge Plan Departure Patient Disposition: Home Clinical Impression: Chest pain Qualifiers: Chest pain type: unspecified Qualified Code(s): R07.9 - Chest pain, unspecified Activity Restrictions/Additional Instructions: Recommend that you contact your primary provider to discuss further workup especially if her symptoms do not improve or if you find that they are associated with eating. Also recommend that you try [id number] antacids like we discussed. Return to the emergency department for any new or worsening symptoms Prescriptions: No Action ferrous fumarate-docusate 325 mg PO DAILY RF: 0 ondansetron 4 mg tablet,disintegrating 4 mg PO Q8H PRN (Reason: nausea and vomiting) Qty: 20 RF: 0 hydrocodone-acetaminophen 5-325 mg tablet 1 tab PO Q8H PRN (Reason: pain) Qty: 20 RF: 0 amoxicillin-pot clavulanate [Augmentin] 875-125 mg tablet 1 tab PO BID Qty: 14 RF: 0 PNV cmb#95-ferrous fumarate-FA [] 28 mg iron- 800 mcg tablet 1 tab PO DAILY RF: 0 acetaminophen 325 mg Tablet 650 mg PO Q6HR PRN (Reason: Pain, Mild (1-3)) Qty: 30 RF: 0 Dermoplast (with menthol) 20-0.5 % Aerosol 1 spray topical Q1HR PRN (Reason: perineal pain) Qty: 56 RF: 0 docusate sodium [DOK] 100 mg Capsule 100 mg PO DAILY Qty: 30 RF: 0 ibuprofen 600 mg Tablet 600 mg PO Q6HR PRN (Reason: Pain, Mild (1-3)) Qty: 30 RF: 0 Yna-Z-Tprxvj Cream 1 applic topical PRN PRN (Reason: Tenderness) Qty: 24 RF: 0 Referrals: Dallas Urrutia PA-C [Primary Care Provider] -
[2020-04-19 23:42] LABS: Add Manual Diff / Slide Review NO; Basophils Absolute Auto 0 /uL (0-100); Basophils Percent Auto 0.3 % (0-2); Eosinophils Absolute Auto 200 /uL (0-450); Eosinophils Percent Auto 1.6 % (2-4); Hematocrit 34.1 % (36-46); Hemoglobin 11.4 g/dL (12.0-16.0); Lymphocytes Absolute Auto 1300 /uL (1100-4500); Lymphocytes Percent Auto 12.6 % (25-40); Mean Corpuscular HGB Conc 33.4 % (30-36); Mean Corpuscular Hemoglobin 28.6 PG (26-34); Mean Corpuscular Volume 85.6 fL (80-100); Monocytes Absolute Auto 900 /uL (0-900); Monocytes Percent Auto 8.2 % (3-14); Neutrophils Absolute Auto 8100 /uL (1500-7000); Neutrophils Percent Auto 77.3 % (50-75); Platelet Count 218 X10^3/uL (150-400); Red Blood Cell Count 3.98 X10^6/uL (4.0-5.2); Red Cell Distribution Width 12.7 % (11.6-14.8); White Blood Cell Count 10.5 X10^3/uL (4.5-11.0)
[2020-04-19 23:47] LABS: Alanine Aminotransferase 23 IU/L (<35); Albumin 3.6 g/dL (3.5-5.0); Albumin Globulin Ratio 1.4 (1.0-2.8); Alkaline Phosphatase 94 U/L (38-126); Aspartate Aminotransferase 75 IU/L (14-36); BUN Creatinine Ratio 33.3 (6-22); Bilirubin Total 0.4 mg/dL (0.2-1.3); Blood Urea Nitrogen 19 mg/dL (7-17); Calcium 8.7 mg/dL (8.4-10.2); Carbon Dioxide 26 mmol/L (22-32); Chloride 107 mmol/L (98-107); Estimated Glomerular Filt Rate > 60.0 mL/min (>60); Globulin 2.5 g/dL (1.7-4.1); Glucose 101 mg/dL (70-100); HEMOLYSIS < 15 (0-50); Lipase 166 U/L (23-300); Potassium 3.5 mmol/L (3.4-5.1); Sodium 139 mmol/L (137-145); Total Protein 6.1 g/dL (6.3-8.2)
[2020-04-20 00:03] VITALS: BP 100/59; PULSE 74; RESP 14; O2SAT 98
== END 2020-04-20 00:03 | disposition home or self-care (01) ==
PROVIDERS: Emergency Provider Emergency Medicine; PCP Physician Assistant
DX: R07.89 Other chest pain (principal)
CPT/HCPCS: 36415; 71045; 80053; 83690; 85025; 93005; 99284

== ENCOUNTER 2020-04-22 19:50 | Emergency (ER) | payer OTHER, SELFPAY ==
--- NOTE | 2020-04-22 20:01 | DI.US.S_ITS ---
PROCEDURE: US ABDOMEN LIMITED INDICATIONS: RIGHT UPPER QUADRANT PAIN; ELEVATED LFTS TECHNIQUE: Real-time scanning was performed of the abdominal and retroperitoneal organs, with image documentation. COMPARISON: None. FINDINGS: Multiple calculi within the gallbladder lumen are present. No gallbladder wall thickening. No biliary ductal dilatation. Visualized pancreas is within normal limits. IMPRESSION: Cholelithiasis. No evidence of acute cholecystitis. Dictated by: Clarisa Araujo M.D. on 04/22/2020 at 20:52 Approved by: Clarisa Araujo M.D. on 04/22/2020 at 20:53
--- NOTE | 2020-04-22 20:53 | ED_ITS ---
HPI - General Adult General Chief complaint: Abdominal Pain Stated complaint: chest pain, back pain Time Seen by Provider: 04/22/20 20:23 Source: patient Mode of arrival: Ambulatory Limitations: no limitations History of Present Illness HPI narrative: 24-year-old female who I evaluated in the emergency department a couple days ago for epigastric pain. Please see the note from that visit for further information. After that visit she was instructed to follow-up with her primary provider which did today. Patient states that she had some blood drawn and then received a phone call later in the day stating that her liver function tests were elevated and she was instructed to come to the emergency department for evaluation. She has approximately 1 month . During her last visit to the emergency department her liver function tests were relatively unremarkable so this increase in the test from today is a new finding. At the time my evaluation she is not having any discomfort. She states that the pain does come and go. She does think that is associated with eating. She is not having any fevers. Related Data Home Medications Medication Instructions Recorded Confirmed PNV cmb#95-ferrous fumarate-FA 1 tab PO DAILY 04/17/19 03/21/20 [] ferrous fumarate-docusate 325 mg PO DAILY 01/29/20 03/21/20 Previous Rx's Medication Instructions Recorded acetaminophen 650 mg PO Q6HR PRN #30 tab 03/22/20 benzocaine-menthol [Dermoplast 1 spray TOPICAL Q1HR PRN #56 g 03/22/20 (with menthol)] docusate sodium [DOK] 100 mg PO DAILY #30 cap 03/22/20 ibuprofen 600 mg PO Q6HR PRN #30 tab 03/22/20 lanolin [Fyo-M-Ixtgsq] 1 applic TOPICAL PRN PRN #24 g 03/22/20 hydrocodone 5 mg-acetaminophen 325 1 tab PO Q8H PRN #20 tab 04/01/20 mg tablet ondansetron 4 mg disintegrating 4 mg PO Q8H PRN #20 tab 04/01/20 tablet amoxicillin 875 mg-potassium 1 tab PO BID #14 tab 04/02/20 clavulanate 125 mg tablet Allergies Allergy/AdvReac Type Severity Reaction Status Date / Time No Known Drug Allergies Allergy Verified 02/25/20 19:25 Review of Systems Constitutional Constitutional: Denies fever(s) Cardiovascular Cardiovascular: Denies chest pain and Denies dyspnea Respiratory Respiratory: Denies dyspnea Gastrointestinal Gastrointestinal: Denies abdominal pain, Denies change in bowel habits, Denies nausea and Denies vomiting Genitourinary Genitourinary: Denies dysuria Genitourinary: Denies dysuria Musculoskeletal Musculoskeletal: Denies arthralgias and Denies myalgias Integumentary/Breasts Skin/Breast: Denies rash Neurologic Neurologic: Denies behavioral changes Psychiatric Psychiatric: Denies behavioral changes Hematologic/Lymphatic Hematologic/Lymphatic: Denies easy bleeding and Denies easy bruising Allergic/Immunologic Allergic/Immunologic: Denies urticaria Patient History Medical History Acid reflux (Acute) Anxiety (Acute) Jade infection of genital region (Acute) Migraine (Acute) UTI (urinary tract infection) (Acute) Vaginal delivery (Acute) Surgical History [place] teeth removed (Acute ~2019) Family History Mother Scoliosis Father No problems noted. Grandmother No problems noted. Grandfather Cystic fibrosis gene carrier Grandmother No problems noted. Grandfather No problems noted. Family/Other Diabetes mellitus Social History marital status: household members: spouse pets and animals: Yes (X 2 cats and X 1 dog : and aware) education level: college (some college classes) occupational status: employed current occupational exposures/hazards: No Previous occupational history: [employer] special laurie needs: No Smoking Status: Never smoker second hand exposure: No alcohol intake: former (pre- : occasional) substance use type: does not use Smoking Status: Never smoker Exam Initial Vital Signs Initial Vital Signs: Vital Signs Temperature 98.8 F 04/22/20 20:59 Pulse Rate 70 04/22/20 20:59 Blood Pressure 128/76 04/22/20 20:59 Pulse Oximetry 98 04/22/20 20:59 Const General: cooperative and comfortable Limitations: mental status not altered HENMT Head: normal to inspection and normocephalic Resp Effort & Inspection: normal respiratory effort Auscultation: clear to auscultation bilaterally Cardio Rate: regular rate Rhythm: regular rhythm GI Inspection: non-distended Palpation: soft, No firm and No tender Other: No Hernandez sign Back/Spine/Pelvis Back: No CVA tenderness Skin Lesions: no lesions Rashes: no rashes Neuro General: patient alert and patient awake Cognition: normal cognition Speech: speech normal Extrem General: normal to inspection and capillary refill normal Psych Appearance: grossly normal and well kempt Course Orders Ordered: ED Orders 04/22/20 20:01 US abdomen limited Stat 04/22/20 20:46 Complete Blood Count AUTO DIFF Stat Comprehensive Metabolic Panel Stat Lipase Stat Partial Thromboplastin Time Stat Prothrombin Time INR Stat 04/22/20 22:10 Hepatitis Acute Panel Stat Discontinued Medications Hydrocodone Bitart/Acetaminophen (Vicodin 5/325 Prepack) 1 bottle MISC SEEINSTR ONE Stop: 04/22/20 21:35 Last Admin: 04/22/20 21:56 Dose: Not Given Documented by: PATIENCE Ondansetron HCl (Zofran) 4 mg IV NOW ONE Stop: 04/22/20 21:02 Last Admin: 04/22/20 21:09 Dose: 4 mg Documented by: LUCRETIA Ondansetron HCl (Zofran Odt Prepack) 1 bottle MISC SEEINSTR ONE Stop: 04/22/20 21:35 Last Admin: 04/22/20 21:52 Dose: 1 bottle Documented by: PATIENCE Tramadol HCl (Ultram 50mg Prepack) 1 bottle MISC SEEINSTR ONE Stop: 04/22/20 21:56 Last Admin: 04/22/20 22:01 Dose: 1 bottle Documented by: PATIENCE Vital Signs Vital signs: Vital Signs - 8 hr 04/22/20 20:59 04/22/20 22:05 04/22/20 22:15 Temperature 98.8 F Pulse Rate 70 60 66 Respiratory Rate 18 Blood Pressure 128/76 128/76 124/71 Pulse Oximetry 98 98 98 Medical Decision Making Medical Records Medical records reviewed: Yes I reviewed the patient's medical records. Lab Data Lab results reviewed: Yes I reviewed the patient's lab results. Result diagrams: 04/22/20 20:46 04/22/20 20:46 Labs: Lab Results 04/22/20 04/22/20 04/22/20 Range/Units 20:46 20:46 20:46 WBC 7.4 (4.5-11.0) X10^3/uL RBC 4.09 (4.0-5.2) X10^6/uL Hgb 11.6 L (12.0-16.0) g/dL Hct 35.1 L (36-46) % MCV 85.8 (80-100) fL MCH 28.3 (26-34) PG MCHC 33.0 (30-36) % RDW 12.7 (11.6-14.8) % Plt Count 240 (150-400) X10^3/uL Neut % (Auto) 63.1 (50-75) % Lymph % (Auto) 21.8 L (25-40) % [place] % (Auto) 10.5 (3-14) % Eos % (Auto) 4.0 (2-4) % Baso % (Auto) 0.6 (0-2) % Neut # (Auto) 4700 (1716-6289) /uL Lymph # (Auto) 1600 (5535-7767) /uL [place] # (Auto) 800 (0-900) /uL Eos # (Auto) 300 (0-450) /uL Baso # (Auto) 0 (0-100) /uL PT 12.7 (10.1-12.7) SECONDS INR 1.1 (0.9-1.3) APTT 32 (26.4-36.2) SECONDS Sodium 139 (137-145) mmol/L Potassium 4.2 (3.4-5.1) mmol/L Chloride 108 H (98-107) mmol/L Carbon Dioxide 27 (22-32) mmol/L BUN 19 H (7-17) mg/dL Creatinine 0.59 (0.52-1.04) mg/dL Estimated GFR > 60.0 (>60) mL/min BUN/Creatinine Ratio 32.2 H (6-22) Glucose 85 (70-100) mg/dL Calcium 8.8 (8.4-10.2) mg/dL Total Bilirubin 0.6 (0.2-1.3) mg/dL AST 292 H (14-36) IU/L ALT 397 H (<35) IU/L Alkaline Phosphatase 213 H D (38-126) U/L Total Protein 6.8 (6.3-8.2) g/dL Albumin 4.0 (3.5-5.0) g/dL Globulin 2.8 (1.7-4.1) g/dL Albumin/Globulin Ratio 1.4 (1.0-2.8) Lipase 142 (23-300) U/L Imaging Data US - abdomen: Radiologist's Impression: [address] [address] Ultrasound Report Signed Patient: Kaykay Schafer MMR#: [id number] : 1995Acct:[id number] Age/Sex: 24 / FDate of Service: 04/22/20 Loc: ED Accession Number: [id number] Procedure: US abdomen limited Ordering Provider: Stephenie Cardozo PROCEDURE: US ABDOMEN LIMITED INDICATIONS: RIGHT UPPER QUADRANT PAIN; ELEVATED LFTS TECHNIQUE: Real-time scanning was performed of the abdominal and retroperitoneal organs, with image documentation. COMPARISON: None. FINDINGS: Multiple calculi within the gallbladder lumen are present. No gallbladder wall thickening. No biliary ductal dilatation. Visualized pancreas is within normal limits. IMPRESSION: Cholelithiasis. No evidence of acute cholecystitis. Dictated by: Clarisa Araujo M.D. on 04/22/2020 at 20:52 Approved by: Clarisa Araujo M.D. on 04/22/2020 at 20:53 MDM Narrative Medical decision making narrative: She is afebrile, has a relatively benign exam with no Hernandez sign, does have an elevation in her LFTs today which are new compared to a couple days ago. Right upper quadrant ultrasound does show cholelithiasis without signs of cholecystitis. I do suspect that this is the reason that she is having an elevation in her LFTs. I did discuss the case with with General surgery who recommended a hepatitis panel. We feel given the patient's clinical presentation today that she is stable to be discharged home and follow-up in the clinic to discuss having her gallbladder removed. Will send home with symptom control. Patient was given strict return precautions so that if her symptoms worsen that she should return. She expressed understanding and agreement. Discharge Plan Departure Patient Disposition: Home Clinical Impression: Elevated liver function tests Cholelithiasis Qualifiers: Cholelithiasis location: gallbladder Cholecystitis presence: without cholecystitis Biliary obstruction: without biliary obstruction Qualified Code(s): K80.20 - Calculus of gallbladder without cholecystitis without obstruction Discharge Date/Time: 04/22/20 22:15 Instructions: Gallstones (Alternative Therapy), DI for Gallstones Activity Restrictions/Additional Instructions: Recommend that tomorrow you contact your primary provider to let them know that we recommend that you follow-up with the general surgeons to discuss having her gallbladder removed. I discussed her case alize with Dr. Liang with the [place] surgeon's group here at the hospital. Their phone numbers [phone]. He states that he is willing to see you in clinic. A hepatitis panel was pending at the time ear discharge. We will contact you for any abnormalities with this. Recommend that you eat a bland diet. Continue all of your medications as directed. Return to the emergency department for any new or worsening symptoms Prescriptions: No Action ferrous fumarate-docusate 325 mg PO DAILY RF: 0 ondansetron 4 mg tablet,disintegrating 4 mg PO Q8H PRN (Reason: nausea and vomiting) Qty: 20 RF: 0 hydrocodone-acetaminophen 5-325 mg tablet 1 tab PO Q8H PRN (Reason: pain) Qty: 20 RF: 0 amoxicillin-pot clavulanate [Augmentin] 875-125 mg tablet 1 tab PO BID Qty: 14 RF: 0 PNV cmb#95-ferrous fumarate-FA [] 28 mg iron- 800 mcg tablet 1 tab PO DAILY RF: 0 acetaminophen 325 mg Tablet 650 mg PO Q6HR PRN (Reason: Pain, Mild (1-3)) Qty: 30 RF: 0 Dermoplast (with menthol) 20-0.5 % Aerosol 1 spray topical Q1HR PRN (Reason: perineal pain) Qty: 56 RF: 0 docusate sodium [DOK] 100 mg Capsule 100 mg PO DAILY Qty: 30 RF: 0 ibuprofen 600 mg Tablet 600 mg PO Q6HR PRN (Reason: Pain, Mild (1-3)) Qty: 30 RF: 0 Jxi-F-Isfljc Cream 1 applic topical PRN PRN (Reason: Tenderness) Qty: 24 RF: 0 Referrals: Dallas Urrutia PA-C [Primary Care Provider] -
[2020-04-22 20:55] LABS: Add Manual Diff / Slide Review NO; Basophils Absolute Auto 0 /uL (0-100); Basophils Percent Auto 0.6 % (0-2); Eosinophils Absolute Auto 300 /uL (0-450); Hematocrit 35.1 % (36-46); Hemoglobin 11.6 g/dL (12.0-16.0); Lymphocytes Absolute Auto 1600 /uL (1100-4500); Lymphocytes Percent Auto 21.8 % (25-40); Mean Corpuscular Hemoglobin 28.3 PG (26-34); Mean Corpuscular Volume 85.8 fL (80-100); Monocytes Absolute Auto 800 /uL (0-900); Monocytes Percent Auto 10.5 % (3-14); Neutrophils Absolute Auto 4700 /uL (1500-7000); Neutrophils Percent Auto 63.1 % (50-75); Platelet Count 240 X10^3/uL (150-400); Red Blood Cell Count 4.09 X10^6/uL (4.0-5.2); Red Cell Distribution Width 12.7 % (11.6-14.8); White Blood Cell Count 7.4 X10^3/uL (4.5-11.0)
[2020-04-22 20:59] VITALS: BP 128/76; PULSE 70; TEMP 37.1; O2SAT 98
[2020-04-22 21:00] LABS: INR 1.1 (0.9-1.3); Prothrombin Time 12.7 SECONDS (10.1-12.7)
[2020-04-22 21:02] LABS: PTT Partial Thromboplastin Tim 32 SECONDS (26.4-36.2)
[2020-04-22 21:04] LABS: Alanine Aminotransferase 397 IU/L (<35); Albumin Globulin Ratio 1.4 (1.0-2.8); BUN Creatinine Ratio 32.2 (6-22); Bilirubin Total 0.6 mg/dL (0.2-1.3); Blood Urea Nitrogen 19 mg/dL (7-17); Calcium 8.8 mg/dL (8.4-10.2); Carbon Dioxide 27 mmol/L (22-32); Chloride 108 mmol/L (98-107); Estimated Glomerular Filt Rate > 60.0 mL/min (>60); Globulin 2.8 g/dL (1.7-4.1); Glucose 85 mg/dL (70-100); Lipase 142 U/L (23-300); Sodium 139 mmol/L (137-145); Total Protein 6.8 g/dL (6.3-8.2)
[2020-04-22] MEDS: ONDANSETRON 4 MG/2 ML INJ IV (21:09)
[2020-04-22 21:11] LABS: HEMOLYSIS 73 (0-50)
[2020-04-22 21:14] LABS: Potassium 4.2 mmol/L (3.4-5.1)
[2020-04-22 21:15] LABS: Aspartate Aminotransferase 292 IU/L (14-36)
[2020-04-22 21:16] LABS: Alkaline Phosphatase 213 U/L (38-126)
[2020-04-22] MEDS: ONDANSETRON 4 MG ODT PREPACK 1 BOTTLE MISC (21:52)
[2020-04-22] MEDS: HYDROCODONE/ACET 5/325 PREPACK 1 BOTTLE MISC (21:52)
[2020-04-22] MEDS: TRAMADOL 50 MG PREPACK 1 BOTTLE MISC (22:01)
[2020-04-22 22:05] VITALS: BP 128/76; PULSE 60; RESP 18; O2SAT 98
[2020-04-22 22:15] VITALS: BP 124/71; PULSE 66; O2SAT 98
[2020-04-24 06:06] LABS: HBsAg Screen Negative (Negative); Hepatitis A Antibody IgM Negative (Negative); Hepatitis B Core Antibody IgM Negative (Negative); Hepatitis C Antibody <0.1 s/co ratio (0.0-0.9)
== END 2020-04-22 22:15 | disposition home or self-care (01) ==
PROVIDERS: Nurse Practitioner Family; Emergency Provider Emergency Medicine; PCP Physician Assistant
DX: K80.20 Calculus of gallbladder without cholecystitis without obstruction (principal); R94.5 Abnormal results of liver function studies
CPT/HCPCS: 36415; 76705; 80053; 80074; 83690; 85025; 85610; 85730; 96374; 99284; J2405

== ENCOUNTER → 2020-05-08 09:21 | Outpatient (CLI) | payer OTHER, SELFPAY ==
[2020-05-09 21:56] LABS: COVID19 Sendout Not Detected (Not Detect)
== END ==
PROVIDERS: PCP Physician Assistant; Visit Provider Physician Assistant
DX: Z11.59 Encounter for screening for other viral diseases (principal)
CPT/HCPCS: 87635

== ENCOUNTER 2020-05-11 12:48 | Day surgery (SDC) | payer OTHER, SELFPAY ==
[2020-05-06 14:44] VITALS: BMI 23.3
[2020-05-11] VITALS (9 sets, daily range): BP systolic 109–133; BP diastolic 61–74; PULSE 79–127; RESP 8–25; TEMP 36.2–36.6; O2SAT 95–100; BMI 22.3
--- NOTE | 2020-05-11 | PATH_ITS ---
[facility] Accession Number: [id number] . 01 Material submitted: . gallbladder - GALLBLADDER . 01 Clinical history: . SDC . 02 Diagnosis: Gallbladder, Cholecystectomy: Cholelithiasis. No evidence of neoplasm. MRV 05/13/2020 1512 Local . 02 Electronically signed: . Chente Mclaughlin MD, PhD, Pathologist NPI- [id number] . 01 Gross description: . The specimen is received in formalin, labeled gallbladder and consists of a 7.0 x 2.2 x 2.0 cm intact gallbladder with a 0.2 cm in diameter cystic duct. The serosa is pink-purple and smooth. Opening reveals green viscous bile with multiple green-yellow choleliths ranging from 0.1 to 0.2 cm and measuring approximately 3.0 x 2.0 x 0.6 cm in aggregate. The mucosa is youssef-green and velvety, and the wall thickness measures 0.1 cm. A 0.5 x 0.4 x 0.4 cm youssef-pink pericystic lymph node is identified. Display Card Writer sections are submitted, to include the en face cystic duct margin (blue), body and fundus, and pericystic lymph node in cassette A1. ([id number]) /[facility] 05/12/2020 1714 Local . 02 Pathologist provided ICD-10: K80.70 . 02 CPT . 111606 Performed at: 01 [facility] [address], [place], [place] [id number] MD Jean Alvarez MD Phone: [phone] Performed at: [address] [facility] [address] [place], [place] [id number] MD Esthela Perdomo MD Phone: [phone]
[2020-05-11] MEDS: LACTATED RINGERS 1,000 ML 100 ML IV (13:24)
[2020-05-11] MEDS: CEFAZOLIN 2 GM/100 ML FROZ.PIGGY IV (14:50)
--- NOTE | 2020-05-11 15:14 | SUR.OPER ---
Supine on padded OR bed, head on pillow, safety belt at thigh, left arm padded and tucked at side. Right arm secured on padded arm oard <90 degrees abduction. Legs uncrossed. Padded footboard in place. Tape over blanket to secure lower legs.
[2020-05-11] MEDS: BUPIVACAINE 0.5% (PF) VIAL 30 ML INJ (15:27)
[2020-05-11] MEDS: IOPAMIDOL 15 ML VIAL INJ (15:28)
--- NOTE | 2020-05-11 16:00 | DI.RAD.S_ITS ---
PROCEDURE: XR CHOLANGIOGRAM OPERATIVE INDICATIONS: LAPROSCOPIC CHOLESYSTECTOMY COMPARISON: None. FINDINGS: Biliary ducts: The surgeon injected contrast into the biliary ducts after cannulation of the cystic duct stump. Visualized intra- and extrahepatic bile ducts are normal in caliber, without strictures. No intraluminal filling defects to suggest retained ductal stones or sludge. No evidence for iatrogenic ductal injury. Duodenum: Contrast flows promptly through the sphincter of Oddi into the duodenum, which appears normal in caliber. IMPRESSION: Normal operative cholangiogram. Dictated by: Billy Fuentes M.D. on 05/12/2020 at 11:21 Approved by: Billy Fuentes M.D. on 05/12/2020 at 11:22
--- NOTE | 2020-05-11 16:31 | PM.OP.1 ---
Operative Date/Time/Diagnoses Date of procedure: 05/11/20 Time of procedure: 16:31 Pre-op diagnosis: chronicCholelithiasis cholecystitis, abnormal liver function tests Post-op diagnosis: same Procedure & Clinicians Procedure: laparoscopic cholecystectomy with intraoperative cholangiogram Same procedure as scheduled: Yes Indications: symptomatic gallbladder disease Surgeon: Gerard Liang Click Yes if Unassisted: Yes Anesthesia Type: General Operative Notes Findings: normal cholangiogram. Chronically inflamed gallbladder. Closure Type: primary Specimen(s): other ( Gallbladder) Prosthetic devices, grafts, tissues, transplants, or devices: none Estimated Blood Loss (mL): 30 Blood products transfused: none Procedure in detail: the patient is placed supine on the operating room table underwent general endotracheal anesthesia. She was prepped and draped in the usual fashion. Local anesthetic was then infiltrated beneath her umbilicus. A curvilinear incision was made and carried down under direct vision in the peritoneal cavity. a 12 mm port was inserted and the patient was reposition. Local anesthetic was infiltrated and 3 additional 5 mm ports were placed under the right costal margin. The gallbladder was identified grasped and elevated. Adhesions of omentum to its surface were taken down with blunt and cautery dissection. The end of the gallbladder is identified. Dissection here revealed a ductal structure singular nature going directly the gallbladder and day in knee at adjacent artery. Three clips were placed across the artery and there was a small branch posterior to it that also at 3 clips placed on it. They were divided leaving 2 in each structure. A clip was applied at the junction of the cystic duct and gallbladder and a small kamaljit was made in the cystic duct Intentionally. A cholangiocatheter was inserted and a cholangiogram performed. This showed a very normal ductal CIS system with free flow into the duodenum and no filling defects. The cystic duct was long. Three clips were placed on the cystic duct and it was divided leaving them in the patient. The gallbladder is then dissected from its bed in the liver using cautery. Bleeding was controlled with cautery. The gallbladder is removed without difficulty through the umbilical port. The right upper quadrant irrigated suctioned free of fluid. Meticulous hemostasis had been achieved. Ports were all removed. 0 Vicryl sutures were placed in the fascia at the umbilicus and an additional 200 PDS was placed between them. These were tied closing the fascia. The wounds were all irrigated and 4 0 Vicryl subcuticular stitches were used to close the skin along with Steri-Strips. Dressings were applied and the patient was awakened extubated taken to recovery room good condition. There were no apparent complications. Complications: none Post-operative Condition: stable Disposition: PACU
[2020-05-11] MEDS: ONDANSETRON 4 MG/2 ML INJ IV (17:13)
--- NOTE | 2020-05-11 17:15 | SUR.PHASEI ---
Patient c/o nausea, skin pale. Medicated and provided [place].
--- NOTE | 2020-05-11 17:27 | SUR.PHASEI ---
1720-Report from BOUCHRA Fu for 15 minute break.
[2020-05-11] MEDS: fentaNYL 100 MCG/2 ML INJ IV (17:31)
[2020-05-11] MEDS: OXYCODONE/ACETAMINOPHEN 5/325 TABLET 1 TAB PO (17:37)
== END 2020-05-11 18:32 | disposition home or self-care (01) ==
PROVIDERS: PCP Physician Assistant; Referring Provider Specialist; Visit Provider Specialist
PROC: 0FT44ZZ Resection of Gallbladder, Percutaneous Endoscopic Approach (ICD-10-PCS; CPT 47562; principal; 2020-05-11 14:15)
DX: K80.10 Calculus of gallbladder with chronic cholecystitis without obstruction (principal)
CPT/HCPCS: 47563; 74300; 76000; J0690; J1100; J1885; J2250; J2405; J2704; J3010